=== PATIENT | female | born 1985 | race Hispanic/Latino ===

== ENCOUNTER 2017-07-24 09:22 | Day surgery (SDC) | payer OTHER ==
[2017-07-24 09:38] VITALS: BMI 24.5
[2017-07-24] MEDS ORDERED: Propofol 10 mg/ml Inj (20 ML) ONE (10:51)
[2017-07-24] MEDS ORDERED: Succinylcholine 200 mg/10 ml Inj IV ONE (10:52)
[2017-07-24] MEDS ORDERED: Rocuronium 10 mg/ml (5 ml) ONE (10:52)
[2017-07-24] MEDS ORDERED: Midazolam 2 MG/2 ML VIAL ONE (10:52)
[2017-07-24 10:54] LABS: BASO # 0.1 K/uL (0.0-0.2); BASO % 0.8 % (0.0-2.0); EOS # 0.1 K/uL (0.0-0.7); EOS % 1.1 % (0.0-4.0); HEMOGLOBIN 12.9 g/dL (12.0-16.0); LYMPH # 1.9 K/uL (1.0-4.3); LYMPH % 25.8 % (20.0-40.0); MEAN CELL VOLUME 96.8 fl (81.0-99.0); MEAN CORPUSCULAR HEMOGLOBIN 33.3 pg (27.0-31.0); MEAN CORPUSCULAR HGB CONC 34.5 g/dL (33.0-37.0); MEAN PLATELET VOLUME 9.2 fl (7.2-11.7); MONO # 0.5 K/uL (0.0-0.8); MONO % 6.5 % (0.0-10.0); NEUT # 4.8 K/uL (1.8-7.0); NEUT % 65.8 % (50.0-75.0); NRBC % 0.5 % (0.0-0.0); RBC 3.86 Mil/uL (3.80-5.20); WHITE BLOOD COUNT 7.3 K/uL (4.8-10.8)
[2017-07-24] MEDS ORDERED: Strong Iodine Topical Sol. 5%-10% ONE (11:08)
[2017-07-24] MEDS ORDERED: Ferric Subsulfate Sol(60 mL) ONE (11:09)
[2017-07-24] MEDS ORDERED: ACETIC ACID 3% 30 ML LIQUID MC ONE (11:09)
[2017-07-24] MEDS ORDERED: Silver Nitrate Topical - Stick ONE (11:10)
[2017-07-24] MEDS ORDERED: Lactated Ringer's 1,000 ML IV ONE (13:40)
[2017-07-24] MEDS ORDERED: Dexamethasone 4 mg/1 ml ONE (13:53)
--- NOTE | 2017-07-24 14:42 | PCM.SURG1 ---
Surgeon's Initial Post Op Note - Surgeon's Notes Surgeon: Luli Brown md Hotel Or Motel Manager: none Type of Anesthesia: General Endo, Local Anesthesia Administered By: general with LMA Pre-Operative Diagnosis: Persistent cervical dysplasia. Endometrial polyps. Dyspareunia. Abnormal uterine bleeding Operative Findings: colposcopy: satisfactory. ANDREE-1, no vascular abnormalities no punctation, acetowhite lesions noted at 3:00 and 6:00, transformation zone visualiz. Hysteroscopy Meyosure: cervical polyp noted approximately 1 cm in diameter, eendometrial polyps within the endometrial cavity along the anterior uterine wall. excellent hemostasis noted. both cornua visualized normal- appearing Post-Operative Diagnosis: Persistent cervical dysplasia. Endometrial polyps. Dyspareunia. Abnormal uterine bleeding Operation Performed: Hysteroscopic polypectomy using Myosure device. LEEP procedure. Colposcopy. . detailed operative report. 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 decision was made to proce a LEEP procedure as well as hysteroscopic polypectomy using the Myosure device. Proper consent was obtained. Patient was taken to the operating room where general anesthesia was obtained without difficulty. She was prepped and draped appropriately for hysteroscopic removal of endometrial an cervical polyps as well as LEEP procedu. Patient was placed in dorsal lithotomy position, legs were placed in adjustable Mitchell stirrups, and careful attention was placed to avoid hyperflexion or hyperextension of the lower extremities. Bowden catheter was inserted under sterile condition. The cervix was grasped with Tenaculumcervix was dilated to allow a hysteroscope to be advanced into the endometrial cavity. A cervical polyp was visualized on pelvic exam approximately 1 cm in diameter. Hysteroscope was inserted and multiple polypoid structures were noted near the fundus along the anterior ureter on wall. The Myosure device was inserted and in a usual fashion the polyps were excised in a meticulous and careful way with excellent hemostasis. The polypoid tissue was labeled and sent to pathology. At this time to hysteroscope was removed and endometrial distention was reduced. Fluid utilized was normal saline, fluid deficit was measured at 100 mL. next, LEEP safe instruments were inserted including a speculum and vaginal retractor. The transformation zone was visualized. The cervix was painted w 5% acidic acid and acetowhite lesions were visualized at 3:00 and 6 positions. No vascular abnormaliities were noted. a medium-sized LEEP (#10) device was utilized and a LEEP excision biopsy was completed without difficulty, in addition a deep LEEP excision was also completed both were labeled appropriatly and sent ot pathology: monsel solution was applied to the cervix and good hemostasis noted. Patient tolerated the procedure well and was taken to recovery room in stable condition. Prior to incision. She received prophylactic antibiotics, prior to closure sponge lap and needle count correct 2. Specimen/Specimens Removed: LEEP specimen as well as deep LEEP fragment. endometrial polyps, cervical polyp Estimated Blood Loss: EBL {In ML}: 5 Blood Products Given: N/A Drains Used: No Drains Post-Op Condition: Good Date of Surgery/Procedure: 07/24/17 Time of Surgery/Procedure: 14:44
[2017-07-24] MEDS ORDERED: HYDROmorphone 0.5 mg/0.5 ml ISec IVP PRN (14:44)
[2017-07-24] MEDS ORDERED: Oxycodone/Acetaminophen 5/325 mg Tab PO PRN (14:55)
[2017-07-24 15:39] VITALS: RESP 20
[2017-07-24 17:37] VITALS: BP 102/63; PULSE 85; TEMP 98; O2SAT 98
== END 2017-07-24 17:38 | disposition home or self-care (01) ==
LOC: H.OPSURG 09:22
PROVIDERS: ATTEND Obstetrics & Gynecology
DX: N87.9 Dysplasia of cervix uteri, unspecified (principal); N84.0 Polyp of corpus uteri; N72 Inflammatory disease of cervix uteri
CPT/HCPCS: 36415; 57522; 85025; 88305; J0330; J0690; J1100; J1885; J2001; J2250; J2405; J2704; J3010; J7030; J7120